=== PATIENT | male | born 1980 | race Caucasian/White ===

== ENCOUNTER 2017-01-07 23:23 | Emergency (ER) | payer SELFPAY ==
[~2017-01-07] VITALS: Ht 175.3 cm; Wt 65.0 kg
[~2017-01-07 23:23] MED LIST: Z.0.NO CURRENT MEDS
[2017-01-07 23:24] VITALS: BP 136/70; PULSE 106; RESP 16; TEMP 98; O2SAT 100
[2017-01-08 00:44] VITALS: BP 130/79; PULSE 98; RESP 24; O2SAT 100
[2017-01-08] MEDS ORDERED: ONDANSETRON HCL 4 MG/2 ML VIAL IV ONE (00:45)
[2017-01-08] MEDS ORDERED: KETOROLAC TROMETHAMINE 30 MG/ML (IVP) VIAL IV PUSH ONE (00:45)
[2017-01-08] MEDS ORDERED: SODIUM CHLOR 0.9% 1000 ML INJ 1,000 ML IV ONE ×2 (00:45→03:00)
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
[2017-01-08] MEDS ORDERED: HYDROmorphone HCL PF 1 MG/ML VIAL IV PUSH ONE ×2 (01:15→01:45)
[2017-01-08 01:27] VITALS: RESP 18; O2SAT 100
[2017-01-08 01:36] LABS: AUTOMATED NEUTROPHIL # 7.7 TH/MM3 (1.8-7.7); BASOPHIL % 0.4 % (0.0-2.0); EOSINOPHIL % 0.3 % (0.0-4.0); HEMATOCRIT 38.1 % (39.0-51.0); HEMO FLAGS DIFF FINAL; LYMPH % 16.7 % (9.0-44.0); LYMPHOCYTE # 1.7 TH/MM3 (1.0-4.8); MEAN CELL VOLUME 86.6 FL (80.0-100.0); MEAN CORPUSCULAR HGB CONC 34.7 % (32.0-36.0); MONO % 8.9 % (0.0-8.0); NEUT % 73.7 % (16.0-70.0); PLATELET COUNT 229 TH/MM3 (150-450); RED CELL DISTRIBUTION WIDTH 13.3 % (11.6-17.2); WHITE BLOOD COUNT 10.4 TH/MM3 (4.0-11.0)
--- NOTE | 2017-01-08 01:45 | RADRPT ---
EXAM DATE/TIME: 01/08/2017 01:18 [facility] COMPARISON: No previous studies available for comparison. INDICATIONS : Chest pain. MEDICAL HISTORY : None. SURGICAL HISTORY : None. ENCOUNTER: Initial ACUITY: 1 day PAIN SCORE: 0/10 LOCATION: Bilateral chest FINDINGS: A single view of the chest demonstrates the lungs to be symmetrically aerated without evidence of mas s, infiltrate or effusion. The cardiomediastinal contours are unremarkable. Osseous structures are intact. CONCLUSION: No acute disease. Jose Bruner MD on January 08, 2017 at 1:43 Board Certified Radiologist. This report was verified electronically.
[2017-01-08 01:47] LABS: PROTHROMBIN TIME - PATIENT 10.8 SEC (9.8-11.6)
[2017-01-08 01:59] LABS: ALT (GPT) 14 U/L (12-78); ANION GAP 8 MEQ/L (5-15); AST (GOT) 10 U/L (15-37); BICARBONATE 27.4 MEQ/L (21.0-32.0); BLOOD UREA NITROGEN 7 MG/DL (7-18); CHLORIDE 101 MEQ/L (98-107); GLOMERULAR FILTRATION RATE 93 ML/MIN (>89); MAGNESIUM 2.1 MG/DL (1.5-2.5); POTASSIUM 3.1 MEQ/L (3.5-5.1); SODIUM (NA) 136 MEQ/L (136-145)
[2017-01-08 02:02] LABS: ALKALINE PHOSPHATASE 80 U/L (45-117); TOTAL BILIRUBIN ADULT 1.2 MG/DL (0.2-1.0)
--- NOTE | 2017-01-08 02:59 | RADRPT ---
EXAM DATE/TIME: 01/08/2017 01:36 [facility] COMPARISON: No previous studies available for comparison. INDICATIONS : Testicular/groin pain. MEDICAL HISTORY : Substance use. Traumatic brain injury as child. Testicular/groin pain. SURGICAL HISTORY : None. ENCOUNTER: Initial ACUITY: 2 days PAIN SCORE: 10/10 LOCATION: Bilateral scrotum. MEASUREMENTS: RIGHT TESTICLE: 3.8 x 2.4 x 2.8cm LEFT TESTICLE: 3.4 x 2.9 x 2.3cm FINDINGS: RIGHT TESTICLE: Homogeneous echotexture without intra or extratesticular mass. Blood flow is symmetric and within no rmal limits. No hydrocele or varicocele. Epididymis is heterogeneous. LEFT TESTICLE: Homogeneous echotexture without intra or extratesticular mass. Blood flow is symmetric and within no rmal limits. No hydrocele or varicocele. Epididymis is within normal limits. Small left-sided hydr ocele and varicocele. SCROTUM: Within normal limits. CONCLUSION: 1. Right epididymis is heterogeneous. 2. Normal flow in both testicles. 3. Small left hydrocele varicocele. Jose Bruner MD on January 08, 2017 at 2:55 Board Certified Radiologist. This report was verified electronically.
[2017-01-08] MEDS ORDERED: POTASSIUM CHLORIDE 20 MEQ CONTROLLED RELEASE TAB PO ONE (03:00)
[2017-01-08] MEDS ORDERED: IOHEXOL 350 MG/ML 10 ML VIAL (for RAD DIAG) IV ONE (03:13)
[2017-01-08] MEDS ORDERED: CIPR-9 PO (03:25)
[2017-01-08] MEDS ORDERED: NAPR1TAB34 PO (03:25)
[2017-01-08] MEDS ORDERED: cefTRIAXone INJ 1,000 MG in SODIUM CHLORIDE 0.9% INJ 100 ML IV ONE (03:30)
[2017-01-08] MEDS ORDERED: AZITHROMYCIN PWD FOR SUSP 1 GM PACKET PO ONE (03:30)
--- NOTE | 2017-01-08 04:06 | RADRPT ---
EXAM DATE/TIME: 01/08/2017 03:02 [facility] COMPARISON: No previous studies available for comparison. INDICATIONS : Groin pain radiating to the abdomen. IV CONTRAST: 71 cc Omnipaque 350 (iohexol) IV ORAL CONTRAST: No oral contrast ingested. RADIATION DOSE: 9.96 CTDIvol (mGy) MEDICAL HISTORY : None SURGICAL HISTORY : None. ENCOUNTER: Initial ACUITY: 2 weeks PAIN SCALE: 8/10 LOCATION: pelvis TECHNIQUE: Volumetric scanning of the abdomen and pelvis was performed. Using automated exposure control and ad justment of the mA and/or kV according to patient size, radiation dose was kept as low as reasonably achievable to obtain optimal diagnostic quality images. FINDINGS: LOWER LUNGS: The visualized lower lungs are clear. LIVER: Homogeneous density without lesion. There is no dilation of the biliary tree. No calcified gallston es. SPLEEN: Normal size without lesion. PANCREAS: Within normal limits. KIDNEYS: Normal in size and shape. There is no mass, stone or hydronephrosis. ADRENAL GLANDS: Within normal limits. VASCULAR: There is no aortic aneurysm. BOWEL/MESENTERY: The stomach, small bowel, and colon demonstrate no acute abnormality. There is no free intraperitone al air or fluid. ABDOMINAL WALL: Within normal limits. RETROPERITONEUM: There is no lymphadenopathy. BLADDER: No wall thickening or mass. REPRODUCTIVE: Within normal limits. INGUINAL: There is no lymphadenopathy or hernia. MUSCULOSKELETAL: Within normal limits for patient age. CONCLUSION: No acute inflammatory process. Jose Bruner MD on January 08, 2017 at 4:02 Board Certified Radiologist. This report was verified electronically.
[2017-01-08 04:17] LABS: BLOOD, URINE SMALL (NEG); COMMENT (UR) CULTURE INDICATED; CULTURE IF INDICATED CULTURE INDICATED; GLUCOSE,URINE NEG (NEG); KETONE, URINE NEG (NEG); MUCUS URINE FEW /lpf (OCC); NITRITE,URINE NEG (NEG); RENAL EPITHELIAL CELLS 1 /hpf; URINE COLOR YELLOW (YELLW/STRAW)
[2017-01-08 07:30] LABS: CHLAMYDIA PCR DETECTED (NOT DETECT); NEISSERIA PCR NOT DETECTED (NOT DETECT)
== END 2017-01-08 05:13 | disposition home or self-care (01) ==
LOC: NEPE 23:23
DX: N45.1 Epididymitis (principal); I86.1 Scrotal varices; N43.3 Hydrocele, unspecified; N39.0 Urinary tract infection, site not specified; B96.89 Other specified bacterial agents as the cause of diseases classified elsewhere; R31.9 Hematuria, unspecified; R50.9 Fever, unspecified; R00.0 Tachycardia, unspecified
CPT/HCPCS: 71010; 74177; 76870; 80053; 81001; 83605; 83690; 83735; 85025; 85610; 85730; 86140; 87040; 87086; 87491; 87591; 93975; 96361; 96365; 96375; 99284; J0696; J1170; J1885; J2405; J7030; Q9967

== ENCOUNTER 2017-04-13 11:08 | Emergency (ER) | payer SELFPAY ==
[~2017-04-13] VITALS: Ht 175.3 cm; Wt 73.0 kg
[~2017-04-13 11:08] MED LIST changes: +CIPR-9 PO; +NAPR1TAB34 PO; -Z.0.NO CURRENT MEDS
[2017-04-13 11:15] VITALS: BP 114/63; PULSE 104; RESP 22; TEMP 97.4; O2SAT 99
[2017-04-13 11:21] VITALS: BP 114/63; PULSE 104; RESP 22; TEMP 97.4; O2SAT 99
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
[2017-04-13] MEDS ORDERED: ALPR.25 PO (11:45)
[2017-04-13] MEDS ORDERED: REME15TA PO (11:45)
[2017-04-13] MEDS ORDERED: SUBO2MIS SL (11:45)
--- NOTE | 2017-04-13 12:00 | RADRPT ---
EXAM DATE/TIME: 04/13/2017 11:29 [facility] COMPARISON: No previous studies available for comparison. INDICATIONS : Right foot pain post fall. MEDICAL HISTORY : None. SURGICAL HISTORY : None. ENCOUNTER: Initial ACUITY: 1 day PAIN SCORE: 10/10 LOCATION: Right foot. FINDINGS: Two view examination of the right foot demonstrates no dislocation, or fracture. Mild soft tissue swe lling is seen along the dorsum of the forefoot. The calcaneus is intact. Bony mineralization is norm al. CONCLUSION: Soft tissue swelling without evidence of acute fracture. Magan Cooney MD on April 13, 2017 at 11:58 Board Certified Radiologist. This report was verified electronically.
--- NOTE | 2017-04-13 12:01 | RADRPT ---
EXAM DATE/TIME: 04/13/2017 11:31 [facility] COMPARISON: No previous studies available for comparison. INDICATIONS : Right ankle pain post fall. MEDICAL HISTORY : None. SURGICAL HISTORY : None. ENCOUNTER: Initial ACUITY: 1 day PAIN SCORE: 10/10 LOCATION: Right ankle. FINDINGS: Three view exam was performed of the right ankle. The bony structures are in normal alignment. No e vidence of fracture or dislocation. Soft tissue swelling is seen along the medial and lateral malleol us. The ankle mortise is intact. No radiopaque foreign bodies are seen. Bony mineralization is norm al. CONCLUSION: Soft tissue swelling without evidence of fracture or dislocation. Magan Cooney MD on April 13, 2017 at 11:59 Board Certified Radiologist. This report was verified electronically.
--- NOTE | 2017-04-13 12:11 | RADRPT ---
EXAM DATE/TIME: 04/13/2017 11:33 [facility] COMPARISON: No previous studies available for comparison. INDICATIONS : Right shoulder pain post fall. MEDICAL HISTORY : None. SURGICAL HISTORY : None. ENCOUNTER: Initial ACUITY: 1 day PAIN SCORE: 8/10 LOCATION: Right shoulder. FINDINGS: Multiple view examination of the right shoulder demonstrates no evidence of fracture or dislocation. The glenohumeral and acromioclavicular joints are maintained. There is normal range of motion betwe en internal and external rotation. Bony mineralization is normal. CONCLUSION: No acute disease. Magan Cooney MD on April 13, 2017 at 12:09 Board Certified Radiologist. This report was verified electronically.
[2017-04-13] MEDS ORDERED: NAPR500 PO (12:35)
[2017-04-13 13:16] VITALS: BP 115/72
[2017-04-13 13:37] VITALS: BP 115/72
== END 2017-04-13 13:39 | disposition home or self-care (01) ==
LOC: NEPD 11:08
DX: S93.401A Sprain of unspecified ligament of right ankle, initial encounter (principal); S93.601A Unspecified sprain of right foot, initial encounter; M25.511 Pain in right shoulder; F17.200 Nicotine dependence, unspecified, uncomplicated; Z79.899 Other long term (current) drug therapy; Y35.813A Legal intervention involving manhandling, suspect injured, initial encounter
CPT/HCPCS: 73030; 73610; 73620; 99284

== ENCOUNTER 2018-04-18 13:31 | Observation (INO) ==
[2018-04-18 14:26] LABS: Baso % (Auto) 0.3 % (0.0-2.0); Eos # (Auto) 0.1 th/mm3 (0.0-0.4); Eos % (Auto) 0.9 % (0.0-4.0); Hematocrit 39.7 % (39.0-51.0); Hemoglobin 13.4 gm/dL (13.0-17.0); Lymph # (Auto) 1.5 th/mm3 (1.0-4.8); Lymph % (Auto) 14.8 % (9.0-44.0); Mean Corpuscular HGB Conc 33.7 % (32.0-36.0); Mean Corpuscular Hemoglobin 29.4 pg (27.0-34.0); Mean Corpuscular Volume 87.2 fL (80.0-100.0); Mean Platelet Volume 7.5 fL (7.0-11.0); Mono # (Auto) 0.7 th/mm3 (0.0-0.9); Mono % (Auto) 6.7 % (0.0-8.0); Neut % (Auto) 77.3 % (16.0-70.0); Platelet Count 323 th/mm3 (150-450); Red Blood Count 4.55 mil/mm3 (4.50-5.90); Red Cell Distribution Width 13.9 % (11.6-17.2); White Blood Count 10.4 th/mm3 (4.0-11.0)
--- NOTE | 2018-04-18 14:33 | XR ---
EXAM DATE: 04/18/2018 2:17 PM EDT AGE/SEX: 37 years / Male INDICATIONS: Congestion. Cough. CLINICAL DATA: This is the patient's initial encounter. Patient reports that signs and symptoms have been present for 1 day and indicates a pain score of Nonresponsive. MEDICAL/SURGICAL HISTORY: None. None. COMPARISON: [facility], CHEST SINGLE AP, 01/08/2017. . FINDINGS: A single AP view of the chest demonstrates the lungs to be symmetrically aerated without evidence of mass, infiltrate or effusion. The cardiomediastinal contours are unremarkable. Osseous structures a re intact. CONCLUSION: The lungs are clear. Electronically signed by: Daniele Brooke MD 04/18/2018 2:31 PM EDT
[2018-04-18 14:40] LABS: Activated Partial Thrombo Time 28.2 sec (24.3-30.1); INR 1.1 Ratio
--- NOTE | 2018-04-18 14:40 | ED ---
HPI General Chief Complaint: Altered Mental Status Stated Complaint: Psych eval Time Seen by Provider: 04/18/18 13:52 Limitations: altered mental status History of Present Illness HPI narrative: Patient was brought in by [facility] secondary to [place] Accu-Chek was 106. Was surrounded by oxycodone, Xanax, and drug paraphernalia. Per EMS he did endorse drug use. Unable to get history from patient secondary to altered mental status. He received no narcan by EMS. Related Data Home Medications Medication Instructions Recorded Confirmed Unable to Obtain Home Meds 04/18/18 04/18/18 Allergies Allergy/AdvReac Type Severity Reaction Status Date / Time No Known Allergies Allergy Uncoded 04/13/17 11:25 Review of Systems ROS Unobtainable unobtainable due to mental status PMFSH Social History Social History Substance History: Unable to Obtain Smoking Status: Unknown if ever smoked How Often Do You Have a Drink Containing Alcohol: Unable to Obtain Recent Travel in [facility] within the Last 8 Weeks: No Recent Out of Country Travel within the Last 8 Weeks: No Immunization History Tetanus Immunization: Unsure Hx Influenza Vaccine This Season: Unable to Assess Exam Narrative Exam Narrative: GENERAL: Sleepy but arousable SKIN: Focused skin assessment warm/dry. HEAD: Atraumatic. Normocephalic. EYES: Pupils pinpoint and reactive bilaterally. No scleral icterus. No injection or drainage. ENT: No nasal bleeding or discharge. Mucous membranes dry. NECK: Trachea midline. No JVD. CARDIOVASCULAR: Regular rate and rhythm. No murmur appreciated. RESPIRATORY: No accessory muscle use. Clear to auscultation. Breath sounds equal bilaterally. GASTROINTESTINAL: Abdomen soft, non-tender, nondistended. Hepatic and splenic margins not palpable. MUSCULOSKELETAL: No obvious deformities. No clubbing. No cyanosis. No edema. NEUROLOGICAL: Altered mental status; GCS 7 (E-1, V-1, M-5 localizes to pain) PSYCHIATRIC: Altered mental status Course Initial Documented Vital Signs Temperature 97.5 F L 04/18/18 13:41 Pulse Rate 96 H 04/18/18 13:41 Respiratory Rate 18 04/18/18 13:41 Blood Pressure 111/55 L 04/18/18 13:41 Pulse Oximetry 96 04/18/18 13:41 Last Documented Vital Signs Temperature 97.5 F L 04/18/18 13:48 Pulse Rate 90 04/18/18 16:00 Respiratory Rate 18 04/18/18 16:00 Blood Pressure 111/59 L 04/18/18 16:00 Pulse Oximetry 99 04/18/18 16:00 Critical Care Time Critical Care Time: Yes Total Critical Care Time: 30 Attestation: Aggregate critical care time was 30 minutes. Time to perform other separately billable procedures was not included in the critical care time. My time did not include minutes spent treating any other patients simultaneously or on activities that did not directly contribute to the patient's treatment. The services I provided to this patient were to treat and/or prevent clinically significant deterioration that could result in: , increased morbidity I provided critical care services requiring my management, as noted below: Chart data review, documentation time, medication orders and management, vital sign assessments/reviewing monitor data, ordering and reviewing lab tests, ordering and interpreting/reviewing x-rays and diagnostic studies, care of the patient and discussion of the patient with the admitting physicians. Medical Decision Making MDM Narrative Medical decision making narrative: Patient presents to the emergency department with altered mental status status possibly secondary to substance abuse. Patient placed on manager cardiac, IV access obtained, and labs, head CT, chest x-ray, EKG ordered. Narcan 0.4mg IV ordered. Patient has 1L hanging by EMS, written for another liter of IVF for a total of 2L IV NS. cbc, chem, coags wnl; ammonia and T bili slightly increased; ua-+ RBCs, leukoctye esterase, uds-+ opiates, cocaine, cannaboids, BZD, amphetamines. Patient was only slightly responsive to narcan. CT head negative, CXR no acute process. Will admit. 1615: Admit MD at bedside. Patient more responsive. Differential Diagnosis Differential Diagnosis: Alcohol intoxication, drug abuse/intoxication, ICH Lab Data Result diagrams: 04/18/18 14:00 04/18/18 14:00 Lab Results 04/18/18 04/18/18 04/18/18 Range/Units 14:00 14:00 14:00 WBC 10.4 (4.0-11.0) th/mm3 RBC 4.55 (4.50-5.90) mil/mm3 Hgb 13.4 (13.0-17.0) gm/dL Hct 39.7 (39.0-51.0) % MCV 87.2 (80.0-100.0) fL MCH 29.4 (27.0-34.0) pg MCHC 33.7 (32.0-36.0) % RDW 13.9 (11.6-17.2) % Plt Count 323 (150-450) th/mm3 MPV 7.5 (7.0-11.0) fL Neut % (Auto) 77.3 H (16.0-70.0) % Lymph % (Auto) 14.8 (9.0-44.0) % [place] % (Auto) 6.7 (0.0-8.0) % Eos % (Auto) 0.9 (0.0-4.0) % Baso % (Auto) 0.3 (0.0-2.0) % Neut # (Auto) 8.0 H (1.8-7.7) th/mm3 Lymph # (Auto) 1.5 (1.0-4.8) th/mm3 [place] # (Auto) 0.7 (0.0-0.9) th/mm3 Eos # (Auto) 0.1 (0.0-0.4) th/mm3 Baso # (Auto) 0.0 (0.0-0.2) th/mm3 WBC Differential . Differential Comment Auto diff final PT 11.0 (9.8-11.6) sec INR 1.1 Ratio APTT 28.2 (24.3-30.1) sec Sodium 138 (136-145) meq/L Potassium 3.4 L (3.5-5.1) meq/L Chloride 105 (98-107) meq/L Carbon Dioxide 26.5 (21.0-32.0) meq/L Anion Gap 7 (5-15) meq/L BUN 10 (7-18) mg/dL Creatinine 0.97 (0.60-1.30) mg/dL Estimated GFR 88 L (>89) mL/min Random Glucose 89 (74-106) mg/dL Calcium 8.9 (8.5-10.1) mg/dL Total Bilirubin 1.1 H (0.2-1.0) mg/dL AST 16 (15-37) U/L ALT 14 (12-78) U/L Alkaline Phosphatase 94 (45-117) U/L Ammonia (11-32) mcmol/L Total Creatine Kinase 60 (39-308) U/L Troponin I Less than 0.02 L (0.02-0.05) ng/mL Total Protein 7.8 (6.4-8.2) g/dL Albumin 3.7 (3.4-5.0) g/dL TSH 0.887 (0.358-3.740) uIU/mL Urine Color (Yellw/Straw) Urine Clarity (Clear) Urine pH (5.0-8.5) Ur Specific [place] (1.002-1.035) Urine Protein (Neg-Trace) mg/dL Urine Glucose (UA) (Negative) mg/dL Urine Ketones (Negative) mg/dL Urine Occult Blood (Negative) Urine Nitrate (Negative) Urine Bilirubin (Negative) Urine Urobilinogen (Less than 2) mg/dL Ur Leukocyte Esterase (Negative) Urine RBC (0-3) /hpf Urine WBC (0-5) /hpf Ur Squamous Epith Cells (0-5) /hpf Urine Bacteria (None) /hpf Urine Mucus (Occasional) /lpf Micro UA Comment Urine Culture Comments Salicylates (2.8-20.0) mg/dL Urine Opiates Screen (Neg) Acetaminophen Less than 2.0 L (10.0-30.0) mcg/mL Ur Barbiturates Screen (Neg) Ur Amphetamines Screen (Neg) U Benzodiazepines Scrn (Neg) Urine Cocaine Screen (Neg) U Cannabinoids Screen (Neg) Serum Alcohol Less than 3 (0-5) mg/dL 04/18/18 04/18/18 04/18/18 Range/Units 14:00 14:00 15:07 WBC (4.0-11.0) th/mm3 RBC (4.50-5.90) mil/mm3 Hgb (13.0-17.0) gm/dL Hct (39.0-51.0) % MCV (80.0-100.0) fL MCH (27.0-34.0) pg MCHC (32.0-36.0) % RDW (11.6-17.2) % Plt Count (150-450) th/mm3 MPV (7.0-11.0) fL Neut % (Auto) (16.0-70.0) % Lymph % (Auto) (9.0-44.0) % [place] % (Auto) (0.0-8.0) % Eos % (Auto) (0.0-4.0) % Baso % (Auto) (0.0-2.0) % Neut # (Auto) (1.8-7.7) th/mm3 Lymph # (Auto) (1.0-4.8) th/mm3 [place] # (Auto) (0.0-0.9) th/mm3 Eos # (Auto) (0.0-0.4) th/mm3 Baso # (Auto) (0.0-0.2) th/mm3 WBC Differential Differential Comment PT (9.8-11.6) sec INR Ratio APTT (24.3-30.1) sec Sodium (136-145) meq/L Potassium (3.5-5.1) meq/L Chloride (98-107) meq/L Carbon Dioxide (21.0-32.0) meq/L Anion Gap (5-15) meq/L BUN (7-18) mg/dL Creatinine (0.60-1.30) mg/dL Estimated GFR (>89) mL/min Random Glucose (74-106) mg/dL Calcium (8.5-10.1) mg/dL Total Bilirubin (0.2-1.0) mg/dL AST (15-37) U/L ALT (12-78) U/L Alkaline Phosphatase (45-117) U/L Ammonia 56 H (11-32) mcmol/L Total Creatine Kinase (39-308) U/L Troponin I (0.02-0.05) ng/mL Total Protein (6.4-8.2) g/dL Albumin (3.4-5.0) g/dL TSH (0.358-3.740) uIU/mL Urine Color (Yellw/Straw) Urine Clarity (Clear) Urine pH (5.0-8.5) Ur Specific [place] (1.002-1.035) Urine Protein (Neg-Trace) mg/dL Urine Glucose (UA) (Negative) mg/dL Urine Ketones (Negative) mg/dL Urine Occult Blood (Negative) Urine Nitrate (Negative) Urine Bilirubin (Negative) Urine Urobilinogen (Less than 2) mg/dL Ur Leukocyte Esterase (Negative) Urine RBC (0-3) /hpf Urine WBC (0-5) /hpf Ur Squamous Epith Cells (0-5) /hpf Urine Bacteria (None) /hpf Urine Mucus (Occasional) /lpf Micro UA Comment Urine Culture Comments Salicylates Less than 1.7 L (2.8-20.0) mg/dL Urine Opiates Screen Pos H (Neg) Acetaminophen (10.0-30.0) mcg/mL Ur Barbiturates Screen Neg (Neg) Ur Amphetamines Screen Pos H (Neg) U Benzodiazepines Scrn Pos H (Neg) Urine Cocaine Screen Pos H (Neg) U Cannabinoids Screen Pos H (Neg) Serum Alcohol (0-5) mg/dL 04/18/18 Range/Units 15:07 WBC (4.0-11.0) th/mm3 RBC (4.50-5.90) mil/mm3 Hgb (13.0-17.0) gm/dL Hct (39.0-51.0) % MCV (80.0-100.0) fL MCH (27.0-34.0) pg MCHC (32.0-36.0) % RDW (11.6-17.2) % Plt Count (150-450) th/mm3 MPV (7.0-11.0) fL Neut % (Auto) (16.0-70.0) % Lymph % (Auto) (9.0-44.0) % [place] % (Auto) (0.0-8.0) % Eos % (Auto) (0.0-4.0) % Baso % (Auto) (0.0-2.0) % Neut # (Auto) (1.8-7.7) th/mm3 Lymph # (Auto) (1.0-4.8) th/mm3 [place] # (Auto) (0.0-0.9) th/mm3 Eos # (Auto) (0.0-0.4) th/mm3 Baso # (Auto) (0.0-0.2) th/mm3 WBC Differential Differential Comment PT (9.8-11.6) sec INR Ratio APTT (24.3-30.1) sec Sodium (136-145) meq/L Potassium (3.5-5.1) meq/L Chloride (98-107) meq/L Carbon Dioxide (21.0-32.0) meq/L Anion Gap (5-15) meq/L BUN (7-18) mg/dL Creatinine (0.60-1.30) mg/dL Estimated GFR (>89) mL/min Random Glucose (74-106) mg/dL Calcium (8.5-10.1) mg/dL Total Bilirubin (0.2-1.0) mg/dL AST (15-37) U/L ALT (12-78) U/L Alkaline Phosphatase (45-117) U/L Ammonia (11-32) mcmol/L Total Creatine Kinase (39-308) U/L Troponin I (0.02-0.05) ng/mL Total Protein (6.4-8.2) g/dL Albumin (3.4-5.0) g/dL TSH (0.358-3.740) uIU/mL Urine Color Yellow (Yellw/Straw) Urine Clarity Cloudy H (Clear) Urine pH 6.0 (5.0-8.5) Ur Specific [place] 1.026 (1.002-1.035) Urine Protein 30 H (Neg-Trace) mg/dL Urine Glucose (UA) Negative (Negative) mg/dL Urine Ketones Trace (Negative) mg/dL Urine Occult Blood Small H (Negative) Urine Nitrate Negative (Negative) Urine Bilirubin Negative (Negative) Urine Urobilinogen 2.0 H (Less than 2) mg/dL Ur Leukocyte Esterase Large H (Negative) Urine RBC 11 H (0-3) /hpf Urine WBC (0-5) /hpf Ur Squamous Epith Cells <1 (0-5) /hpf Urine Bacteria Rare H (None) /hpf Urine Mucus Few H (Occasional) /lpf Micro UA Comment Cath-culture ind Urine Culture Comments Cath-cult indicated Salicylates (2.8-20.0) mg/dL Urine Opiates Screen (Neg) Acetaminophen (10.0-30.0) mcg/mL Ur Barbiturates Screen (Neg) Ur Amphetamines Screen (Neg) U Benzodiazepines Scrn (Neg) Urine Cocaine Screen (Neg) U Cannabinoids Screen (Neg) Serum Alcohol (0-5) mg/dL Imaging Data Radiologist's impression: Chest X-Ray 04/18/18 13:52 CONCLUSION: The lungs are clear. Head CT 04/18/18 13:52 CONCLUSION: 1. Negative noncontrast CT brain. . ECG Data Attestation: I personally reviewed and interpreted this ECG as follows: (Rate 83 , sinus rhythm, normal axis, normal intervals, T-wave inversion in lead III and V1, right ventricular conduction delay) Discharge Plan Discharge Disposition Patient Disposition: 30 Still Patient Discharge Condition Condition: Stable Discharge Details Diagnosis: Altered mental status, Acute drug intoxication Physicians Team ED Provider: Jyoti Gutierrez Primary Care Provider: Roberto Lundberg Attending Provider: Karlos Clement Status ED Status: Admitted Observation Patient
--- NOTE | 2018-04-18 14:43 | CT ---
EXAM DATE: 04/18/2018 2:39 PM EDT AGE/SEX: 37 years / Male INDICATIONS: Altered mental status. CLINICAL DATA: This is the patient's initial encounter. Patient reports that signs and symptoms have been present for 1 day and indicates a pain score of Nonresponsive. MEDICAL/SURGICAL HISTORY: Non-responsive. Non-responsive. RADIATION DOSE: 35.50 CTDI (mGy) ; Patient motion COMPARISON: No prior exams available for comparison. TECHNIQUE: CT of the head without contrast. Using automated exposure control and adjustment of the mA and/or kV according to patient size, radiation dose was kept as low as reasonably achievable to ob tain optimal diagnostic quality images. DICOM format image data is available electronically for revi ew and comparison. FINDINGS: Cerebrum: The ventricles are normal for age. No evidence of midline shift, mass lesion, hemorrhage or acute infarction. No extraaxial fluid collections are seen. Posterior Fossa: The cerebellum and brainstem are intact. The 4th ventricle is midline. The cerebe llopontine angle is unremarkable. Extracranial: The visualized portion of the orbits is intact. Skull: The calvaria is intact. No evidence of skull fracture. CONCLUSION: 1. Negative noncontrast CT brain. . Electronically signed by: Daniele Brooke MD 04/18/2018 2:42 PM EDT
[2018-04-18] MEDS ORDERED: Naloxone Inj 0.4 MG/ML Vial IV.PUSH ONE (14:46)
[2018-04-18 15:20] LABS: Alanine Aminotransferase 14 U/L (12-78); Albumin 3.7 g/dL (3.4-5.0); Anion Gap 7 meq/L (5-15); Aspartate Aminotransferase 16 U/L (15-37); Blood Urea Nitrogen 10 mg/dL (7-18); Calcium 8.9 mg/dL (8.5-10.1); Carbon Dioxide 26.5 meq/L (21.0-32.0); Chloride 105 meq/L (98-107); Glomerular Filtration Rate 88 mL/min (>89); Glucose,Random 89 mg/dL (74-106); Sodium 138 meq/L (136-145)
[2018-04-18 15:22] LABS: Potassium 3.4 meq/L (3.5-5.1)
[2018-04-18 15:26] LABS: Amphetamine Screen,Urine Pos (Neg); Barbiturate Screen,Urine Neg (Neg); Cannabinoid Screen,Urine Pos (Neg); Cocaine Screen,Urine Pos (Neg)
[2018-04-18 15:28] LABS: Bacteria,Urine Rare /hpf; Bilirubin,Urine Negative (Negative); Clarity,Urine Cloudy (Clear); Color,Urine Yellow (Yellw/Straw); Glucose,Urine (UA) Negative (Negative); Leukocyte Esterase,Urine Large (Negative); Mucus,Urine Few /lpf (Occasional); Nitrite,Urine Negative (Negative); Specific Gravity,Urine 1.026 (1.002-1.035); Squamous Epithelial Cell,Urine <1 /hpf (0-5)
[2018-04-18 15:30] LABS: Opiate Screen,Urine Pos (Neg)
[2018-04-18 15:33] LABS: Alkaline Phosphatase 94 U/L (45-117); Creatine Kinase 60 U/L (39-308); Thyroid Stimulating Hormone 0.887 uIU/mL (0.358-3.740); Total Protein 7.8 g/dL (6.4-8.2)
[2018-04-18] MEDS ORDERED: Sod Chloride 0.9% Inj 1,000 ML IV.SIG ONE (15:49)
--- NOTE | 2018-04-18 16:21 | P.HPIM ---
History of Present Illness Primary Care Physician: Roberto Lundberg MD History of Present Illness: 37-year-old male who is brought in [place] with [place] and drug paraphernalia. Patient is unresponsive on admission, however has perked up a little bit after some IV Narcan administered in the ER. Patient is awake, opens eyes, however noncompliant with medical treatment and is not answering any questions. History obtained from the ER attending. Review of Systems Uncooperative with history and physical. PMFSH - History History Provided By: Director Retail Brand Development / EMT, Law Enforcement - Tobacco History Smoking Status: Unknown if ever smoked - Alcohol History How Often Do You Have a Drink Containing Alcohol: Unable to Obtain - Substance Use History Substance History: Unable to Obtain - Travel History Recent Travel in the [place] Within the Last 8 Weeks: No Recent Travel Out of the Country Within the Last 8 Weeks: No - Immunization History Tetanus Immunization: Unsure Hx Influenza Vaccine This Season: Unable to Assess Medications and Allergies Active Medications: Active Medications Ceftriaxone Sodium 1,000 mg/ (Sodium Chloride) 100 mls @ 200 mls/hr IV.SIG ONCE ONE Stop: 04/18/18 16:33 Ceftriaxone Sodium 1,000 mg/ (Sodium Chloride) 100 mls @ 200 mls/hr IV.SIG Q24H EMMETT Sodium Chloride (Ns Inj) 1,000 mls @ 100 mls/hr IV.CONT .Q10H EMMETT Sodium Chloride (Ns Flush) 2 ml IV.FLUSH BID EMMETT Sodium Chloride (Ns Flush) 2 ml IV.FLUSH PRN PRN PRN Reason: FLUSH AFTER USING IV ACCESS Allergies Allergy/AdvReac Type Severity Reaction Status Date / Time No Known Allergies Allergy Uncoded 04/13/17 11:25 Home Medications Medication Instructions Recorded Confirmed Type Unable to Obtain Home Meds 04/18/18 04/18/18 History Exam Vital signs: Vital Signs 04/18/18 13:41 04/18/18 13:48 04/18/18 14:15 Temperature 97.5 F L 97.5 F L Pulse Rate 96 H 98 H Respiratory Rate 18 18 18 Blood Pressure 111/55 L 111/55 L Pulse Oximetry 96 96 04/18/18 14:36 04/18/18 14:48 04/18/18 15:00 Temperature Pulse Rate 81 82 94 H Respiratory Rate 16 18 Blood Pressure 100/56 L 107/60 Pulse Oximetry 99 100 100 Intake & Output 04/17/18 04/18/18 04/18/18 18:59 06:59 18:59 Weight 68.039 kg Narrative: GENERAL: Patient sitting up in bed. Opens eyes to verbal stimulation. Noncooperative, pulling off sheets. pushing nurse away. SKIN: Warm and dry. HEAD: Normocephalic. EYES: No scleral icterus. No injection or drainage. NECK: Supple, trachea midline. No JVD. CARDIOVASCULAR: Regular rate and rhythm without murmurs, gallops, or rubs. RESPIRATORY: Breath sounds equal bilaterally. No accessory muscle use. GASTROINTESTINAL: Abdomen soft, non-tender, nondistended. MUSCULOSKELETAL: No cyanosis, or edema. BACK: Nontender without obvious deformity. No CVA tenderness. Results - Labs CBC & Chem 7: 04/18/18 14:00 04/18/18 14:00 Labs: Short CBC 04/18/18 Range/Units 14:00 WBC 10.4 (4.0-11.0) th/mm3 Hgb 13.4 (13.0-17.0) gm/dL Hct 39.7 (39.0-51.0) % Plt Count 323 (150-450) th/mm3 BMP 04/18/18 14:00 Sodium 138 Potassium 3.4 L Chloride 105 Carbon Dioxide 26.5 BUN 10 Creatinine 0.97 Calcium 8.9 Cardiac Enzymes 04/18/18 Range/Units 14:00 Total Creatine Kinase 60 (39-308) U/L Troponin I Less than 0.02 L (0.02-0.05) ng/mL Liver Function 04/18/18 Range/Units 14:00 Total Bilirubin 1.1 H (0.2-1.0) mg/dL AST 16 (15-37) U/L ALT 14 (12-78) U/L Alkaline Phosphatase 94 (45-117) U/L Albumin 3.7 (3.4-5.0) g/dL Urine 04/18/18 Range/Units 15:07 Urine Color Yellow (Yellw/Straw) Urine Clarity Cloudy H (Clear) Urine pH 6.0 (5.0-8.5) Ur Specific [place] 1.026 (1.002-1.035) Urine Protein 30 H (Neg-Trace) mg/dL Urine Glucose (UA) Negative (Negative) mg/dL - Imaging Impressions Chest X-Ray 04/18/18 13:52 CONCLUSION: The lungs are clear. Head CT 04/18/18 13:52 CONCLUSION: 1. Negative noncontrast CT brain. . Caprini VTE Risk Assessment Caprini VTE Risk Assessment: No/Low Risk (score <= 1) Caprini Risk Assessment Model: Point Value = 1 Point Value = 2 Point Value = 3 Point Value = 5 Age 41-60 Minor surgery BMI > 25 kg/m2 Swollen legs Varicose veins or History of unexplained or recurrent spontaneous Oral contraceptives or hormone replacement Sepsis (< 1 month) Serious lung disease, including pneumonia (< 1 month) Abnormal pulmonary function Acute myocardial infarction Congestive heart failure (< 1 month) History of inflammatory bowel disease Medical patient at bed rest Age 61-74 Arthroscopic surgery Major open surgery (> 45 min) Laparoscopic surgery (> 45 min) Malignancy Confined to bed (> 72 hours) Immobilizing plaster cast Central venous access Age >= 75 History of VTE Family history of VTE Factor V Leiden Prothrombin [id number] Lupus anticoagulant Anticardiolipin antibodies Elevated serum homocysteine Heparin-induced thrombocytopenia Other congenital or acquired thrombophilia Stroke (< 1 month) Elective arthroplasty Hip, pelvis, or leg fracture Acute spinal cord injury (< 1 month) Prophylaxis Regimen: Total Risk Factor Score Risk Level Prophylaxis Regimen 0-1 Low Early ambulation 2 Moderate Order ONE of the following: *Sequential Compression Device (SCD) *Heparin 5000 units SQ BID 3-4 Higher Order ONE of the following medications: *Heparin 5000 units SQ TID *Enoxaparin/Lovenox 40 mg SQ daily (WT < 150 kg, CrCl > 30 mL/min) *Enoxaparin/Lovenox 30 mg SQ daily (WT < 150 kg, CrCl > 10-29 mL/min) *Enoxaparin/Lovenox 30 mg SQ BID (WT < 150 kg, CrCl > 30 mL/min) AND/OR *Sequential Compression Device (SCD) 5 or more Highest Order ONE of the following medications: *Heparin 5000 units SQ TID (Preferred with Epidurals) *Enoxaparin/Lovenox 40 mg SQ daily (WT < 150 kg, CrCl > 30 mL/min) *Enoxaparin/Lovenox 30 mg SQ daily (WT < 150 kg, CrCl > 10-29 mL/min) *Enoxaparin/Lovenox 30 mg SQ BID (WT < 150 kg, CrCl > 30 mL/min) AND *Sequential Compression Device (SCD) Assessment and Plan - Plan //Drug overdose Improved alertness after 0.4 mg of IV Narcan. Will continue every 4 hours neuro checks and observation. Continue to observe //Complex UTI. Innumerable white blood cells on urinalysis. Will start on ceftriaxone. Does not appear to have flank tenderness on exam. Patient does have tachycardia, however no leukocytosis. Will continue ceftriaxone and follow -up urine cultures. New
[2018-04-18] MEDS: Sod Chloride 0.9% Inj 1,000 ML IV.CONT SCH (18:57)
[2018-04-19 04:00] VITALS: TEMP 97
[2018-04-19] MEDS: Sod Chloride 0.9% Inj 1,000 ML IV.CONT SCH (05:15)
[2018-04-19 08:02] VITALS: BP 108/67; RESP 18; O2SAT 100
[2018-04-19 08:14] VITALS: PULSE 96
--- NOTE | 2018-04-19 10:07 | P.PN ---
Subjective Interval history: Follow-up visit drug overdose. Patient seen and examined today. Drowsy but awake. Oriented to self, where he lives, date. Does not know what brought him to the hospital. States he took Xanax and oxis. Provided his address and phone number of his mother. Patient curses out but is able to be coherent enough to say he wants to go home and not be the hospital. Irritable. Curses out every sentence. Denies SOB/ dyspnea. Denies SI/HI Physical Exam Vital signs: Vital Signs 04/18/18 13:41 04/18/18 13:48 04/18/18 14:15 Temperature 97.5 F L 97.5 F L Pulse Rate 96 H 98 H Respiratory Rate 18 18 18 Blood Pressure 111/55 L 111/55 L Pulse Oximetry 96 96 04/18/18 14:36 04/18/18 14:48 04/18/18 15:00 Temperature Pulse Rate 81 82 94 H Respiratory Rate 16 18 Blood Pressure 100/56 L 107/60 Pulse Oximetry 99 100 100 04/18/18 16:00 04/18/18 20:06 04/19/18 03:59 Temperature 97.0 F L Pulse Rate 90 88 Respiratory Rate 18 19 Blood Pressure 111/59 L 102/58 L 104/56 L Pulse Oximetry 99 04/19/18 08:01 04/19/18 08:13 Temperature Pulse Rate 73 96 H Respiratory Rate 18 Blood Pressure 108/67 Pulse Oximetry 100 Intake & Output 04/18/18 04/19/18 04/19/18 18:59 06:59 18:59 Intake Total 1100 / 1100 400 / 400 Balance 1100 / 1100 400 / 400 Weight 68.039 kg Intake: IV 1100 / 1100 NS Inj 1,000 ML @ Wide Open IV. 1000 / 1000 SIG BOLUS ONE Rx#:[id number] Rocephin Inj 1,000 MG In NS Inj 100 / 100 100 ML @ 200 mls/hr IV.SIG ONCE ONE Rx#:[id number] Oral 400 / 400 Narrative: GENERAL: This is a well-nourished, well-developed patient, in no apparent distress. SKIN: Warm and dry. HEENT: Normocephalic. Pupils equal round and reactive. Nose without bleeding. Airway patent. NECK: Trachea midline. No JVD. Supple. CARDIOVASCULAR: Regular rate and rhythm without murmurs, gallops, or rubs. RESPIRATORY: Clear to auscultation. Breath sounds equal bilaterally. No wheezes , rales, or rhonchi. GASTROINTESTINAL: Abdomen soft, non-tender, nondistended. Bowel Sounds normoactive x4. MUSCULOSKELETAL: Extremities without clubbing, cyanosis, or edema. NEUROLOGICAL: Awake and drowsy. No focal neuro deficit. Moves all extremities. Normal speech. - Urinary Catheter Management Straight Cath placed during this visit: yes Reason for continuing: Not indwelling catheter Insertion date: 04/18/18 Insertion time: 15:02 Results - Labs CBC & Chem 7: 04/18/18 14:00 04/18/18 14:00 Laboratory Results - last 24 hr 04/18/18 04/18/18 04/18/18 14:00 14:00 14:00 WBC 10.4 RBC 4.55 Hgb 13.4 Hct 39.7 MCV 87.2 MCH 29.4 MCHC 33.7 RDW 13.9 Plt Count 323 MPV 7.5 Neut % (Auto) 77.3 H Lymph % (Auto) 14.8 Ada % (Auto) 6.7 Eos % (Auto) 0.9 Baso % (Auto) 0.3 Neut # (Auto) 8.0 H Lymph # (Auto) 1.5 Ada # (Auto) 0.7 Eos # (Auto) 0.1 Baso # (Auto) 0.0 WBC Differential . Differential Comment Auto diff final PT 11.0 INR 1.1 APTT 28.2 Sodium 138 Potassium 3.4 L Chloride 105 Carbon Dioxide 26.5 Anion Gap 7 BUN 10 Creatinine 0.97 Estimated GFR 88 L Random Glucose 89 Calcium 8.9 Total Bilirubin 1.1 H AST 16 ALT 14 Alkaline Phosphatase 94 Ammonia Total Creatine Kinase 60 Troponin I Less than 0.02 L Total Protein 7.8 Albumin 3.7 TSH 0.887 Urine Color Urine Clarity Urine pH Ur Specific [place] Urine Protein Urine Glucose (UA) Urine Ketones Urine Occult Blood Urine Nitrate Urine Bilirubin Urine Urobilinogen Ur Leukocyte Esterase Urine RBC Urine WBC Ur Squamous Epith Cells Urine Bacteria Urine Mucus Micro UA Comment Urine Culture Comments Salicylates Urine Opiates Screen Acetaminophen Less than 2.0 L Ur Barbiturates Screen Ur Amphetamines Screen U Benzodiazepines Scrn Urine Cocaine Screen U Cannabinoids Screen Serum Alcohol Less than 3 04/18/18 04/18/18 04/18/18 14:00 14:00 15:07 WBC RBC Hgb Hct MCV MCH MCHC RDW Plt Count MPV Neut % (Auto) Lymph % (Auto) Ada % (Auto) Eos % (Auto) Baso % (Auto) Neut # (Auto) Lymph # (Auto) Ada # (Auto) Eos # (Auto) Baso # (Auto) WBC Differential Differential Comment PT INR APTT Sodium Potassium Chloride Carbon Dioxide Anion Gap BUN Creatinine Estimated GFR Random Glucose Calcium Total Bilirubin AST ALT Alkaline Phosphatase Ammonia 56 H Total Creatine Kinase Troponin I Total Protein Albumin TSH Urine Color Urine Clarity Urine pH Ur Specific [place] Urine Protein Urine Glucose (UA) Urine Ketones Urine Occult Blood Urine Nitrate Urine Bilirubin Urine Urobilinogen Ur Leukocyte Esterase Urine RBC Urine WBC Ur Squamous Epith Cells Urine Bacteria Urine Mucus Micro UA Comment Urine Culture Comments Salicylates Less than 1.7 L Urine Opiates Screen Pos H Acetaminophen Ur Barbiturates Screen Neg Ur Amphetamines Screen Pos H U Benzodiazepines Scrn Pos H Urine Cocaine Screen Pos H U Cannabinoids Screen Pos H Serum Alcohol 04/18/18 15:07 WBC RBC Hgb Hct MCV MCH MCHC RDW Plt Count MPV Neut % (Auto) Lymph % (Auto) Ada % (Auto) Eos % (Auto) Baso % (Auto) Neut # (Auto) Lymph # (Auto) Ada # (Auto) Eos # (Auto) Baso # (Auto) WBC Differential Differential Comment PT INR APTT Sodium Potassium Chloride Carbon Dioxide Anion Gap BUN Creatinine Estimated GFR Random Glucose Calcium Total Bilirubin AST ALT Alkaline Phosphatase Ammonia Total Creatine Kinase Troponin I Total Protein Albumin TSH Urine Color Yellow Urine Clarity Cloudy H Urine pH 6.0 Ur Specific [place] 1.026 Urine Protein 30 H Urine Glucose (UA) Negative Urine Ketones Trace Urine Occult Blood Small H Urine Nitrate Negative Urine Bilirubin Negative Urine Urobilinogen 2.0 H Ur Leukocyte Esterase Large H Urine RBC 11 H Urine WBC Ur Squamous Epith Cells <1 Urine Bacteria Rare H Urine Mucus Few H Micro UA Comment Cath-culture ind Urine Culture Comments Cath-cult indicated Salicylates Urine Opiates Screen Acetaminophen Ur Barbiturates Screen Ur Amphetamines Screen U Benzodiazepines Scrn Urine Cocaine Screen U Cannabinoids Screen Serum Alcohol - Imaging Impressions Chest X-Ray 04/18/18 13:52 CONCLUSION: The lungs are clear. Head CT 04/18/18 13:52 CONCLUSION: 1. Negative noncontrast CT brain. . - Procedures None Assessment and Plan - Assessment (1) Acute drug intoxication Code(s): F19.929 - Other psychoactive substance use, unspecified with intoxication, unspecified Status: Acute - Plan 37-year-old male who [place] and drug paraphernalia. Drug overdose -Improved alertness after 0.4 mg of IV Narcan. -Every 4 hours neuro checks and observation -More awake, drowsy. Coherent response. -Denies suicidal or homicidal ideation Complex UTI -Innumerable white blood cells on urinalysis. -On ceftriaxone. Denies flank tenderness, dysuria -No leukocytosis -Declines IV access DVT SCDs Code Status: Full Code Discussed Condition With: Patient, nursing, Dr. Clement Discharge Planning: Plan to discharge home today (1) Acute drug intoxication Qualifiers: Complication of substance-induced condition: with unspecified complication Qualified Code(s): F19.929 - Other psychoactive substance use, unspecified with intoxication, unspecified
--- NOTE | 2018-04-19 10:36 | P.AMA ---
AMA Note - AMA Note AMA Statement: Patient Ty Becky Cheek has decided to leave the hospital against medical advice. This patient has the capacity to refuse care and understands the risks of leaving, including permanent disability and/or , and has had an opportunity to ask questions about his/her condition. The patient has been informed that he/she may return for care at any time, and follow up has been arranged/advised. - AMA Note Discharge Disposition: Left Against Medical Advice Patient Condition on Discharge: Stable
--- NOTE | 2018-04-19 15:28 | ECG ---
Date Performed: 04/18/2018 Time Performed: 16:58:08 PTAGE: 37 years EKG: Sinus rhythm POSSIBLE RIGHT VENTRICULAR CONDUCTION DELAY BORDERLINE ECG Compared to PREVIOUS TRACING , the right ventricular conduction delay is new. PREVIOUS TRACIN07/30 03.46 DOCTOR: Cooper Kaplan Interpretating Date/Time 04/19/2018 15:27:31
== END 2018-04-19 11:38 | disposition left against medical advice (07) ==
LOC: NEPC 13:31 → NEPFCDU 13:31 → NEDA 13:31 → NEPFCDU 17:18
PROVIDERS: ADMIT Internal Medicine; ATTEND Internal Medicine